=== PATIENT | male | born 1955 ===

== ENCOUNTER → 2021-09-22 | Outpatient (CLI) | payer MEDICARE, BC ==
[~2021-09-22] VITALS: Ht 165.1 cm; Wt 75.8 kg
[~2021-09-22] MED LIST: ASPI-1450 PO; ATOR40TA28 PO; DOCU-350 PO; FERR325T27 PO; GABA-1181 PO; LISI-894 PO; METF-1185 PO; METO25 PO; NITR0.4T52 SL; PRIM50TA3 PO
[2021-09-22 10:59] VITALS: BP 110/55
== END | disposition home or self-care (01) ==
LOC: SRCNTR 10:13
PROVIDERS: ATTEND Internal Medicine Critical Care Medicine
DX: Z09 Encounter for follow-up examination after completed treatment for conditions other than malignant neoplasm (principal); I10 Essential (primary) hypertension; E11.9 Type 2 diabetes mellitus without complications; E78.5 Hyperlipidemia, unspecified; G20 Parkinson's disease; J84.9 Interstitial pulmonary disease, unspecified; I25.10 Atherosclerotic heart disease of native coronary artery without angina pectoris; Z95.5 Presence of coronary angioplasty implant and graft
CPT/HCPCS: G0463